=== PATIENT | male | born 1975 | race Caucasian/White ===

== ENCOUNTER → 2017-12-11 | Day surgery (SDC) | payer BC ==
[~2017-12-11] VITALS: Ht 210.8 cm; Wt 100.0 kg
[~2017-12-11] MED LIST: ACETAMINOPHEN 1000 MG/100 ML 100 ML IV SCH; ALPR1TAB3 PO; AMLO5TAB2 PO; BUPIVACAINE LIPOSOME PF 1.3% 20 ML VIAL ONE; CHLORHEXIDINE GLUCONATE 2 % 1 PACK (2 CLOTHS) TOPICAL PRN; GABA100C4 PO; KETOROLAC TROMETHAMINE 30 MG/ML (IVP) VIAL ONE; LACTATED RINGER'S 1000 ML IV PRN; LIDOCAINE 1%/EPINEPHrine 1:100,000 SOLN 30 ML VIAL ONE; MELO15TA20 PO; METOPROLOL TARTRATE 25 MG TAB PO PRN; MIDAZOLAM HCL 2 MG/2 ML VIAL ONE; OMEP40CA2 PO; OXYC30TA PO; POVIDONE IODINE 5% (ANTISEPSIS KIT) 4 APPLICATIONS EACH NARE PRN; SODIUM BICARBONATE 8.4% INJ 0 ML ONE; SODIUM CHLORID 0.9% 500 ML IV PRN; SUMA5I NASAL; TRAM50TA PO; oxyCODONE/ACETAMINOPHEN 5 MG/325 MG TAB ONE
--- NOTE | 2017-12-11 11:52 | PD.OP ---
cc: Eriberto Torres MD Operative Report Date of Surgery: Dec 11, 2017 Preoperative Diagnosis: Lipomas left lower back Postoperative Diagnosis: Lipomas left lower back Procedure: Excision of lipomas left lower back Anesthesia: General endotracheal Surgeon: Eriberto Torres Cdl Bulk Driver(s): None Operation and Findings: Operative procedure: The patient brought to the operating room and after satisfactory general endotracheal anesthesia obtained, the patient was positioned prone on the operating table with careful protection of all extremities and his neck. The left lower back was prepped and draped in the usual sterile fashion. 1.3% Exparel was used to infiltrate the skin for local anesthesia. A transverse skin incision was made over the palpable abnormalities. His carried out sharply through the subcutaneous tissue with cautery being used for hemostasis. Incision was deepened into the area of the lipoma which was grasped with Allis clamps and dissected free using the cautery. The total area resected was 6 x 6 cm. No other palpable abnormalities were able to be appreciated despite bimanual palpation from within the wound as well as externally. Hemostasis was strictly assured after which the deep dermis and subcutaneous tissue were closed with interrupted 3-0 Vicryl sutures and the and then closed with interrupted 4-0 PDS subcuticular stitches. Steri strips and a compressive dressing were placed the patient was then awakened and taken from the operating room, in satisfactory condition, having tolerated the procedure without problem. Estimated blood loss was 5 mL' s. The instrument, sponge, needle counts were reported as being correct 2 at the end of the procedure. Eriberto Torres MD Dec 11, 2017 11:52
[2017-12-11 11:54] VITALS: PULSE 117
[2017-12-11 12:30] VITALS: PULSE 89; TEMP 98.1
[2017-12-11 13:10] VITALS: BP 98/77; PULSE 103; RESP 14; O2SAT 97
== END | disposition home or self-care (01) ==
LOC: PHSDC 07:33
PROVIDERS: ATTEND Surgery
DX: D17.1 Benign lipomatous neoplasm of skin and subcutaneous tissue of trunk (principal); I10 Essential (primary) hypertension
CPT/HCPCS: 00300; 11404; 88304; C9290; J0131; J1885; J2250; J3010; J7120